=== PATIENT | female | born 1975 | race Hispanic/Latino ===

== ENCOUNTER 2022-03-15 08:23 | Emergency (ER) | payer SELFPAY ==
[~2022-03-15] VITALS: Ht 165.1 cm; Wt 95.4 kg
[~2022-03-15 08:23] MED LIST: FLEXERIL PO; ULTRAM50 M1 PO
[2022-03-15] MEDS ORDERED: METFORMIN HCL500 M1 PO (08:31)
[2022-03-15] MEDS ORDERED: GABAPENTIN100 MG PO (08:31)
[2022-03-15] MEDS ORDERED: OMNI-PAC300 MG PO (08:59)
[2022-03-15 09:07] VITALS: BP 122/79
== END 2022-03-15 09:22 | disposition home or self-care (01) | DRG 605 ==
LOC: ED 08:23
DX: S61.233A Puncture wound without foreign body of left middle finger without damage to nail, initial encounter (principal); M67.844 Other specified disorders of tendon, left hand; E11.9 Type 2 diabetes mellitus without complications; W26.0XXA Contact with knife, initial encounter; Y93.G1 Activity, food preparation and clean up; Y92.000 Kitchen of unspecified non-institutional (private) residence as the place of occurrence of the external cause; Z79.84 Long term (current) use of oral hypoglycemic drugs